=== PATIENT | female | born 1975 | race Caucasian/White ===

== ENCOUNTER 2016-09-16 13:21 | Inpatient (IN) | payer OTHER ==
--- NOTE | ~2016-09-16 | HP ---
Unit #: [id number] #: [id number] Patient: CONCHA CARPENTER [id number] [address] [place], [place] [address] [id number] I MR#: [id number] NAME: CONCHA CARPENTER ROOM: 558 Age: 41 Sex: F Admission Date: 09/16/2016 : 1975 Attending Physician: April Watson M.D. Primary Care Physician: Primary Care Physician No HISTORY AND PHYSICAL CHIEF COMPLAINT Short of air HISTORY OF PRESENT ILLNESS The patient is a 41-year-old female; past medical history of meningitis, back pain, who presented to the emergency department for evaluation of the above. The patient states that she has had a 3-4 history of increasing shortness of breath and intermittently productive cough. She has had chills, but no documented fever. She reports pain in the lower chest wall in association with cough. She has not been on antibiotics or steroids within the past month. She has never been told that she has COPD. She states that she has been using an inhaler intermittently over the past month due to shortness of breath. She states that she has used it about once a week. In the emergency department, initial pulse and blood pressure were 88 and 176/107 respectively. Oxygen saturation was 96% on room air. Chest x-ray shows increased interstitial markings. BNP is 40. She was given 125 mg of Solu-Medrol as well as a gram of magnesium. She is being admitted to [facility] for evaluation and further treatment. PAST MEDICAL HISTORY 1. [facility], for back pain. 2. History of meningitis more than 10 years ago. PAST SURGICAL HISTORY None. SOCIAL HISTORY The patient lives with her boyfriend. She works in fast food. She smokes a pack of cigarettes daily. She denies alcohol or illicit drug use. CODE STATUS Full code. FAMILY HISTORY Is notable for her dad possibly having stomach malignancy. ALLERGIES AZITRHOMYCIN. HOME MEDICATIONS Unit #: [id number] #: [id number] Patient: CONCHA CARPENTER None REVIEW OF SYSTEMS A complete review of systems is negative except as indicated in the HPI. DIAGNOSTIC STUDIES CARDIOLOGY: Diagnostic EKG showed sinus rhythm with a rate of 70 beats per minute. IMAGING: Chest x-ray shows slightly increased interstitial markings. LABORATORY: Complete blood count notable for a blood cell count of 13.2. BNP is 40, INR is 0.9. D-dimer was 358. Comprehensive metabolic panel notable for a chloride of 99. Troponin is less than 0.05. PHYSICAL EXAMINATION VITAL SIGNS: Temperature 97.5, pulse 88, respirations 16, blood pressure 176/107. Oxygen saturation is 95% on room air. GENERAL: The patient is a female who is awake and alert. She is mild to moderate distress. HEENT: The head is atraumatic. Mucous membranes are moist. NECK: Supple. Trachea is midline. CARDIOVASCULAR: Tachycardic around 100. LUNGS: Demonstrate inspiratory and expiratory wheezes. Breathing is mildly labored. ABDOMEN: Soft, nontender, with bowel sounds present in all four quadrants. EXTREMITIES: Nontender with no pedal edema. NEUROLOGIC: The patient is awake and alert. She follows commands. PSYCHIATRIC: Mood and affect are normal. The patient is cooperative. SKIN: Of examined areas is warm and dry. ASSESSMENT The patient is a 41-year-old female with: 1. Chronic obstructive pulmonary disease exacerbation. The patient received magnesium and Solu-Medrol in the emergency department. The patient has not been told that she has chronic obstructive pulmonary disease, but likely does have underlying chronic obstructive pulmonary disease. 2. Leukocytosis. 3. Elevated blood pressure 4. Tobacco abuse. PLAN 1. Admit to intermediate level. 2. Healthy heart diet when stable. 3. Blood cultures x2. 4. Sputum culture and sensitivity. 5. DuoNeb every 4 hours while awake and every 2 hours p.r.n. 6. Solu-Medrol 80 mg IV every 12 hours. 7. Doxicycline 100 mg p.o. b.i.d. for possible acute bronchitis. 8. Mucinex 600 mg p.o. b.i.d. 9. Arterial blood gas. 10. Consult Dr. Darius Whitlock regarding likely chronic obstructive pulmonary disease. 11. Check urinalysis and urine toxicology screen. 12. Hydralazine as needed. 13. Serial cardiac enzymes. 14. Sequential compression devices for deep venous thrombosis Unit #: [id number] #: [id number] Patient: PAULINECONCHA ARMENDARIZ prophylaxis. 15. Protonix for gastrointestinal prophylaxis since the patient will be on Solu-Medrol. 16. Repeat labs in the morning. 17. Additional workup and consultants. Dictated by April Watson M.D. SAMMI/maddy TD: 09/16/2016 22:39 JOB #: [id number] HISTORY AND PHYSICAL Page 1 of 1 X April Watson MD X HISTORY AND PHYSICAL
--- NOTE | ~2016-09-16 | CR72 ---
[facility] A Service of [facility] RADIOLOGY TEXT RESULTS PATIENT: CONCHA CARPENTER LOCATION: [facility] : 75 UNIT #: [id number] AGE: [address]: Jeremías Chou MD SEX: F ORDER DR: [id number] [facility] [address] [facility]. [place], [place] [address] [id number] E MR#: [id number] Acc #: [id number] NAME: CONCHA CARPENTER : 1975 SEX: F STUDY DATE/TIME: 09/16/2016 UNIT: AV[facility] ROOM: STUDY DESCRIPTION: CR Chest Single View Portable Attending Physician: Jeremías Chou M.D. Ordering Physician: Jeremías Chou M.D. Primary Care Physician: No Primary Care Physician MEDICAL IMAGING REPORT This report is preliminary unless electronic signature is present EXAM Chest portable 09/16/2016 1344 hours. HISTORY 41-year-old with 3-day history of shortness of air. COMPARISON 06/17/2015 FINDINGS 2 upright portable views demonstrate normal cardiac, mediastinal and hilar contours. Lungs are hyperinflated. Interstitial markings are slightly increased from prior study. There is no airspace consolidation or effusion. IMPRESSION There is persistent pulmonary hyperinflation. Interstitial markings are minimally increased over 06/17/2015. The presence of mild interstitial edema cannot be excluded. There is no airspace density or pleural effusion. Dictated by... Tonia Cortez M.D. THIS IS AN ELECTRONICALLY VERIFIED REPORT Tonia Cortez M.D. at 09/16/2016 5:18 PM RISSA/tammie TD: 09/16/2016 16:41 JOB #: [id number] MEDICAL IMAGING REPORT [facility] A Service of [facility] RADIOLOGY TEXT RESULTS PATIENT: CONCHA CARPENTER LOCATION: [facility] : 75 UNIT #: [id number] AGE: [address]: Jeremías Chou MD SEX: F ORDER DR: Page 1 of 1 COPY
--- NOTE | ~2016-09-16 | EKG ---
PATIENT: CONCHA CARPENTER UNIT #: [id number] Ventricular Rate: 70 BPM Atrial Rate: 70 BPM P-R Interval: 104 ms QRS Duration: 72 ms Q-T Interval: 370 ms QTC Calculation(Bezet): 399 ms P Sidney: 62 degrees Calculated R Sidney: 73 degrees Calculated T Sidney: 52 degrees Diagnosis Line: Sinus rhythm with short RI Diagnosis Line: Otherwise normal ECG Diagnosis Line: When compared with ECG of 14-JUL-2014 21:26, Diagnosis Line: Vent. rate has decreased BY 35 BPM Diagnosis Line: Confirmed by IVANA BANERJEE MD ([id number]) on Diagnosis Line: 09/16/2016 5:28:41 PM INTERPRETING MD: CHRISS BRADSHAW
--- NOTE | ~2016-09-16 | CO ---
Unit #: [id number] #: [id number] Patient: CONCHA CARPENTER [id number] [address] [address] [id number] I MR#: [id number] NAME: CONCHA CARPENTER ROOM: 558 Age: 41 Sex: F Admission Date: 09/16/2016 : 1975 Attending Physician: Austin Nation M.D. Primary Care Physician: No Primary Care Physician Consultation Date: 09/16/2016 CONSULTATION REPORT REASON FOR CONSULT COPD management. HISTORY OF PRESENT ILLNESS This is a 41-year-old female with a past medical history significant for meningitis, back pain and smoking, who presented to the emergency room with progressive shortness of breath for the last few days. The patient stated that her shortness of breath started almost a week ago but for the last couple of days it progressed rapidly and she was unable to take a deep breath. She had a cough but no sputum production. The patient denied any fever, chills or night sweats. The patient has a rescue inhalation as needed but she never has seen a sfdc architect or had an official workup. The patient works at [employer] and she smokes a pack of cigarettes per day. PAST MEDICAL HISTORY 1. Likely COPD. 2. History of meningitis. 3. Nicotine abuse. PAST SURGICAL HISTORY None. PAST SOCIAL HISTORY The lives with her boyfriend. She works as [employer] and she smokes a pack of cigarettes daily. No history of alcohol or drug abuse. CODE STATUS Full Code. FAMILY HISTORY Malignant cancer. ALLERGIES Azithromycin. HOME MEDICATIONS None. REVIEW OF SYSTEMS Twelve point review of systems were obtained and were negative except for Unit #: [id number] #: [id number] Patient: CONCHA CARPENTER what was mentioned in the HPI. DIAGNOSTIC STUDIES IMAGING: Chest x-ray is normal. LABORATORY: Creatinine is 0.8, chloride 99, white blood count 13.2, hemoglobin 13.3, platelets 287. ASSESSMENT 1. Acute exacerbation of chronic obstructive pulmonary disease. 2. Nicotine abuse. 3. Questionable history of polysubstance abuse. PLAN 1. Will continue patient on IV steroids, bronchodilators and mucolytics. 2. IV doxycycline since patient is allergic to azithromycin. 3. Will add hypertonic normal saline nebulizer. 4. The patient will need alpha-I antitrypsin screening as an outpatient. 5. PFT as an outpatient. 6. Patient was counseled regarding smoking cessation. Will add nicotine patches right now and will have another planned as an outpatient. 7. DVT prophylaxis. Dictated by... Gina Chatterjee TD: 09/18/2016 10:11 JOB #: [id number] CONSULTATION REPORT Page 1 of 1 X SHAINA OLMOS MD X CONSULTATION REPORT
--- NOTE | ~2016-09-16 | DS ---
Unit #: [id number] #: [id number] Patient: CONCHA CARPENTER [id number] [address] [address] [id number] I MR#: [id number] NAME: CONCHA CARPENTER ROOM: [facility] Age: 41 Sex: F Admission Date: 09/16/2016 : 1975 Discharge Date: 09/18/2016 Attending Physician: Austin Nation M.D. Primary Care Physician: Primary Care Physician No DISCHARGE SUMMARY DISCHARGE DIAGNOSES 1. Acute hypoxic respiratory failure. 2. Acute bronchitis. HOSPITAL COURSE The patient is a 41-year-old female, admitted through [facility] Emergency Department with complaint of shortness of air. She states that it progressed over 3 to 4 days and it was associated with cough that was productive. She had a chest x-ray without any acute findings. She was diffusely wheezy on exam. The patient's oxygen saturations were initially 96% on room air; however, it did plummet to the low 80s to high 70s with ambulation. As a result, the patient was started on O2 and admitted. The patient was started on IV steroids, oxygen, and nebulized treatments and at this time, the patient has responded well. She is no longer hypoxic and wheezy and as a result, is being discharged home. DISCHARGE MEDICATIONS Prednisone taper. Albuterol MDI two puffs q.4 hours. Doxycycline 100 mg p.o. b.i.d. FOLLOWUP The patient should follow up with her primary care provider next week. Dictated by... Gina Constantino/jamila TD: 09/19/2016 09:15 JOB #: [id number] Unit #: [id number] #: [id number] Patient: CONCHA CARPENTER DISCHARGE SUMMARY Page 1 of 1 X Austin Nation MD DISCHARGE SUMMARY
[~2016-09-16 13:21] MED LIST: ALBUTEROL 0.5ML INH; AMBIEN10 MG; BACTRIM DS TABL1 TA1 PO; BENADRYL PO; DELTASONE20 MG PO; DICLOFENAC; FLEXERIL; FLEXERIL10 M1 PO; FLEXERIL10 MG PO; IBUPROFEN800 MG PO; KLONOPIN0.5 MG; LEVAQUIN PO; LORTAB 5-325 M1 EACH PO; LORTAB 5/500 TA1 TA1 PO; MEDROL DOSEPAK4 MG PO; MEDROL4 MG/DOSE- PO; NAPROSYN500 MG PO; NEURONTIN100 MG; NO MEDICATIONS; NORCO 5/325 TAB1 TAB PO; NORCO1 TAB 10/3 PO; NORFLEX100 M1 PO; PENICILLIN V P500 MG PO; PERCOCET5/325 PO; PHENERGAN12.5 MG/0. PO; PREDNISONE PO; TORADOL10 MG PO; ULTRAM PO; VOLTAREN75 MG PO; ZOFRAN ODT PO
[2016-09-16 14:43] LABS: POC - CKMB 7.7 ng/mL (0.0-7.9); POC - TROPONIN <0.05 ng/mL (<=0.05)
[2016-09-16 14:48] LABS: BASOPHIL# 0.1 X10e3 (0-0.3); BASOPHIL% 0.7 % (0-2.5); EOSINOPHIL# 0.5 X10e3 (0-0.7); HEMATOCRIT 41.4 % (35.0-45.0); HEMOGLOBIN 13.3 gm/dL (12.0-16.0); LYMPHOCYTE% 53.3 % (17.0-45.0); MEAN CELL VOLUME 96.1 FL (83-96); MEAN CORPUSCULAR HEMOGLOBIN 30.9 PG (28-34); MEAN CORPUSCULAR HGB CONC 32.2 g/dL (30-36); MEAN PLATELET VOLUME 8.4 FL (6.5-11.5); MONOCYTE# 0.3 X10e3 (0-1.0); MONOCYTE% 2.6 % (3.0-12.0); NEUTROPHIL# 5.2 X10e3 (1.5-7.1); NEUTROPHIL% 39.4 % (40-75); PLATELET COUNT 287 X10e3 (140-420); RED CELL DISTRIBUTION WIDTH 15.6 % (11.0-15.5); WHITE BLOOD COUNT 13.2 X10e3 (4.0-10.5)
[2016-09-16 14:50] LABS: DIFF IND YES
[2016-09-16 15:01] LABS: INR 0.9; PARTIAL THROMBOPLASTIN TIME 27.8 SECONDS (23.5-31.3)
[2016-09-16 15:03] LABS: ALBUMIN SERUM 4.6 g/dL (3.5-5.0); BILIRUBIN, DIRECT 0.1 mg/dL (0.0-0.2); BILIRUBIN,INDIRECT 0.1 mg/dL (0.0-0.9); BILIRUBIN,TOTAL 0.2 mg/dL (0.2-2.0); BUN/CREATININE RATIO 16.25; CALCIUM SERUM 9.3 mg/dL (8.4-10.2); CREATININE SERUM 0.8 mg/dL (0.6-1.4); GLOM FILT RATE Estimated 91.7 mL/min (>60); POTASSIUM 4.2 mmol/L (3.5-5.1); PROTEIN TOTAL SERUM 7.6 g/dL (6.0-8.3)
[2016-09-16 15:26] LABS: ANISOCYTOSIS MOD; PLATELET ESTIMATE NORMAL (NORMAL); POIKILOCYTOSIS SL
[2016-09-16] MEDS ORDERED: NO MEDICATIONS (16:15)
[2016-09-16 16:31] LABS: ARTERIAL BLD GAS O2 SATURATION 93.9 % (90.0-100.0); ARTERIAL BLOOD GAS HCO3 24.9 mmol/L; ARTERIAL BLOOD GAS MET HB 0.6 %sat (0.0-2.0); ARTERIAL BLOOD GAS PCO2 47.6 mmHg (35.0-45.0); ARTERIAL BLOOD GAS pH 7.327 (7.350-7.450)
[2016-09-16 16:34] LABS: ARTERIAL BLOOD GAS ART SITE RIGHT BRACHIAL; ARTERIAL BLOOD GAS DELIVERY NASAL CANNULA; ARTERIAL BLOOD GAS PO2 75.9 mmHg (80.0-100); ARTERIAL DRAW? YES
[2016-09-16 17:51] LABS: URINE APPEARANCE CLEAR; URINE BILIRUBIN NEG (NEG); URINE BLOOD 1+ (NEG); URINE COLOR YELLOW; URINE GLUCOSE NEG (NEG); URINE KETONE NEG (NEG); URINE LEUKOCYTE ESTERASE NEG (NEG); URINE NITRATE NEG (NEG); URINE PROTEIN NEG (NEG); URINE SPECIFIC GRAVITY 1.021 (1.003-1.035); URINE UROBILINOGEN 0.2 MG/DL (NEG)
[2016-09-16 17:57] LABS: URINE BACTERIA AUWI NEG (NEGATIVE); URINE SQUAMOUS EPITHELIAL CELL NONE SEEN /[HPF]; UWBCS1 AUWI 0-2 (0-5)
[2016-09-16 18:10] LABS: AMPHETAMINE POS (NEG); BARBITURATES NEG (NEG); BENZODIAZEPINES NEG (NEG); COCAINE NEG (NEG); MARIJUANA POS (NEG); OPIATES POS (NEG); TRICYCLIC ANTIDEPRESSANTS NEG (NEG); U METHADONE NEG (NEG)
[2016-09-17 00:07] LABS: %MB 3.4 % (0.0-4.0); MB 13.9 ng/ml
[2016-09-17 23:00] LABS: BASOPHIL# 0.1 X10e3 (0-0.3); BASOPHIL% 0.3 % (0-2.5); DIFF IND YES; EOSINOPHIL# 0.1 X10e3 (0-0.7); EOSINOPHIL% 0.4 % (0.0-7.0); HEMATOCRIT 40.2 % (35.0-45.0); HEMOGLOBIN 13.5 gm/dL (12.0-16.0); LYMPHOCYTE# 1.2 X10e3 (1.0-3.5); LYMPHOCYTE% 5.8 % (17.0-45.0); MEAN CELL VOLUME 94.4 FL (83-96); MEAN CORPUSCULAR HEMOGLOBIN 31.6 PG (28-34); MEAN CORPUSCULAR HGB CONC 33.5 g/dL (30-36); MEAN PLATELET VOLUME 8.4 FL (6.5-11.5); MONOCYTE# 0.7 X10e3 (0-1.0); MONOCYTE% 3.3 % (3.0-12.0); NEUTROPHIL# 18.1 X10e3 (1.5-7.1); NEUTROPHIL% 90.2 % (40-75); PLATELET COUNT 287 X10e3 (140-420); RED BLOOD COUNT 4.26 X10e (3.90-5.30); RED CELL DISTRIBUTION WIDTH 15.7 % (11.0-15.5)
[2016-09-17 23:36] LABS: PLATELET ESTIMATE NORMAL (NORMAL)
[2016-09-17 23:50] LABS: BUN/CREATININE RATIO 23.33; CALCIUM SERUM 9.6 mg/dL (8.4-10.2); CREATININE SERUM 0.9 mg/dL (0.6-1.4); GLOM FILT RATE Estimated 79.5 mL/min (>60); POTASSIUM 4.4 mmol/L (3.5-5.1)
[2016-09-17 23:54] LABS: %MB 2.8 % (0.0-4.0); MB 11.4 ng/ml
[2016-09-18 06:27] LABS: HEMATOCRIT 39.8 % (35.0-45.0); HEMOGLOBIN 13.2 gm/dL (12.0-16.0); MEAN CELL VOLUME 94.2 FL (83-96); MEAN CORPUSCULAR HEMOGLOBIN 31.2 PG (28-34); MEAN CORPUSCULAR HGB CONC 33.1 g/dL (30-36); MEAN PLATELET VOLUME 8.6 FL (6.5-11.5); RED BLOOD COUNT 4.22 X10e (3.90-5.30); RED CELL DISTRIBUTION WIDTH 15.6 % (11.0-15.5); WHITE BLOOD COUNT 17.9 X10e3 (4.0-10.5)
[2016-09-18 07:00] LABS: BUN/CREATININE RATIO 28.75; CALCIUM SERUM 9.8 mg/dL (8.4-10.2); CREATININE SERUM 0.8 mg/dL (0.6-1.4); GLOM FILT RATE Estimated 91.7 mL/min (>60); MAGNESIUM 1.9 mg/dL (1.6-3.0); POTASSIUM 4.5 mmol/L (3.5-5.1)
[2016-09-18] MEDS ORDERED: PREDNISONE10 MG PO (12:01)
[2016-09-18] MEDS ORDERED: DOXYCYCLINE HY100 M3 PO (12:02)
[2016-09-18] MEDS ORDERED: ALBUTEROL17 GM INH (12:02)
[2016-09-21 06:07] LABS: HA AB IGM (HEPPAN) Nonreactive (()); HB CORE AB IGM (HEPPAN) Nonreactive (Nonreactive); HB S AG (HEPPAN) Nonreactive (Nonreactive); HEP C AB (HEPPAN) Nonreactive (Nonreactive); HEP C AB SIGNAL TO CUTOFF 0.01 ratio (<1.00)
== END 2016-09-18 13:18 | disposition home or self-care (01) | DRG 189 ==
LOC: CED 13:21 → CEDOF 16:30 → CED 17:30 → CEDOF 17:30 → C5B 21:23
PROVIDERS: Emergency Medicine; Family Medicine; Internal Medicine
DX: J96.01 Acute respiratory failure with hypoxia (principal); F17.210 Nicotine dependence, cigarettes, uncomplicated; J20.9 Acute bronchitis, unspecified; Z71.6 Tobacco abuse counseling; Z88.1 Allergy status to other antibiotic agents; M54.9 Dorsalgia, unspecified; F19.10 Other psychoactive substance abuse, uncomplicated
CPT/HCPCS: 36415; 36600; 71010; 80048; 80074; 80076; 80307; 81003; 82550; 82553; 82803; 83735; 83880; 84484; 84703; 85025; 85027; 85379; 85610; 85730; 87040; 87070; 87086; 87205; 87806; 93005; 94640; 94760; 96374; 99285; J2930; J3475

== ENCOUNTER 2016-10-02 03:41 | Emergency (ER) | payer OTHER ==
[~2016-10-02] VITALS: Ht 177.8 cm; Wt 68.4 kg
--- NOTE | ~2016-10-02 | CR230 ---
[facility]. [facility] A Service of [facility] RADIOLOGY TEXT RESULTS PATIENT: CONCHA CARPENTER LOCATION: SED : 75 UNIT #: [id number] AGE: [address]: Cachorro Dinh DO SEX: F ORDER DR: [id number] [place] [id number] E MR#: [id number] Acc #: [id number] NAME: CONCHA CARPENTER : 1975 SEX: F STUDY DATE/TIME: 10/02/2016 04:28 UNIT: SED ROOM: STUDY DESCRIPTION: CR Shoulder Min 2 View Rt Attending Physician: Cachorro Dinh Ordering Physician: Cachorro Dinh Primary Care Physician: Primary Care Physician No MEDICAL IMAGING REPORT This report is preliminary unless electronic signature is present. EXAM Right shoulder 10/02 0428 hours INDICATIONS Shoulder and clavicular pain after lifting heavy object yesterday at 2:00 p.m. FINDINGS Three views of the right shoulder were obtained. There is no fracture or malalignment. There is no AC joint separation. IMPRESSION Negative right shoulder. Dictated by... Vinod Tobin Jr., M.D. THIS IS AN ELECTRONICALLY VERIFIED REPORT Vinod Tobin Jr., M.D. at 10/02/2016 9:23 PM PERRY/desean TD: 10/02/2016 16:04 JOB #: [id number] MEDICAL IMAGING REPORT Page 1 of 1
[~2016-10-02 03:41] MED LIST changes: +ALBUTEROL17 GM INH; +DOXYCYCLINE HY100 M3 PO; +PREDNISONE10 MG PO
== END 2016-10-02 05:28 | disposition home or self-care (01) ==
LOC: SED 03:41
DX: S43.421A Sprain of right rotator cuff capsule, initial encounter (principal); F17.210 Nicotine dependence, cigarettes, uncomplicated; X58.XXXA Exposure to other specified factors, initial encounter; Y92.009 Unspecified place in unspecified non-institutional (private) residence as the place of occurrence of the external cause
CPT/HCPCS: 73030; 96372; 99283; J1885

== ENCOUNTER 2016-11-22 04:00 | Emergency (ER) | payer OTHER ==
[~2016-11-22] VITALS: Ht 177.8 cm; Wt 68.9 kg
--- NOTE | ~2016-11-22 | CR181 ---
[facility] A Service of [facility] RADIOLOGY TEXT RESULTS PATIENT: CONCHA CARPENTER LOCATION: SED : 75 UNIT #: [id number] AGE: [address]: Meera Guy MD SEX: F ORDER DR: [id number] [place] [id number] E MR#: [id number] Acc #: [id number] NAME: CONCHA CARPENTER : 1975 SEX: F STUDY DATE/TIME: UNIT: SED ROOM: STUDY DESCRIPTION: CR Lumbar Spine 2 or 3 Views Attending Physician: Meera Guy M.D. Ordering Physician: Meera Guy M.D. Primary Care Physician: Primary Care Physician No MEDICAL IMAGING REPORT This report is preliminary unless electronic signature is present. EXAM Lumbar spine 912/414 INDICATIONS Low back pain for 2 hours after falling. TECHNIQUE 3 views of the lumbar spine. COMPARISON STUDIES 10/14/2014. FINDINGS Again seen is degenerative disc disease at L4-5. No fracture or subluxation is seen. IMPRESSION Degenerative disease at L4-5. No fracture or malalignment. Dictated by... Vinod Tobin Jr., M.D. THIS IS AN ELECTRONICALLY VERIFIED REPORT Vinod Tobin Jr., M.D. at 11/22/2016 9:21 PM RLK/pcl TD: 11/22/2016 14:59 JOB #: [id number] MEDICAL IMAGING REPORT [facility] A Service of [facility] RADIOLOGY TEXT RESULTS PATIENT: CONCHA CARPENTER LOCATION: SED : 75 UNIT #: [id number] AGE: [address]: Meera Guy MD SEX: F ORDER DR: Page 1 of 1
[2016-11-22] MEDS ORDERED: SPIRIVA18 MCG INH (04:06)
== END 2016-11-22 04:45 | disposition home or self-care (01) ==
LOC: SED 04:00
DX: S30.0XXA Contusion of lower back and pelvis, initial encounter (principal); J44.9 Chronic obstructive pulmonary disease, unspecified; F17.200 Nicotine dependence, unspecified, uncomplicated; W01.0XXA Fall on same level from slipping, tripping and stumbling without subsequent striking against object, initial encounter; Y92.009 Unspecified place in unspecified non-institutional (private) residence as the place of occurrence of the external cause
CPT/HCPCS: 72100; 99283